=== PATIENT | female | born 1980 | race Caucasian/White ===

== ENCOUNTER 2017-03-17 14:21 | Emergency (ER) | payer OTHER ==
[~2017-03-17] VITALS: Ht 162.6 cm; Wt 105.4 kg
[~2017-03-17 14:21] MED LIST: ABILIFY10 MG PO; ABILIFY15 MG PO; ADDERALL XR 1010 MG PO; ADDERALL XR 2020 MG PO; ADDERALL XR 3030 MG PO; BIRTH CONTROL PILL; Buspar PO; CELEXA20 MG PO; CLEOCIN300 MG PO; CLONAZEPAM1 MG PO; CYMBALTA20 MG PO; DEPAKOTE250 MG PO; DEPAKOTE500 MG PO; Depakote PO; Desyrel PO; GEODON60 MG PO; IMITREX25 MG PO; KLONOPIN1 MG PO; KLONOPIN2 MG PO; LAMICTAL ODT50 MG PO; LAMICTAL25 MG PO; LAMOTRIGINE100 MG PO; MINIPRESS1 MG PO; MIRTAZAPINE30 MG PO; MOBIC7.5 MG PO; MOTRIN800 MG PO; NAPROSYN500 MG PO; PERCOCET 5/31 TABLET PO; PREDNISONE20 MG PO; PROAIR HFA8.5 GM IH; PROMETHAZINE HC25 M1 PO; RISPERDAL0.5 MG PO; RISPERDAL1 MG PO; TESSALON PERLE100 MG PO; TOPAMAX25 MG PO; TORADOL10 MG PO; TRAMADOL HCL50 MG PO; TRAZODONE HCL50 MG PO; ULTRAM50 MG PO; VIBRAMYCIN100 MG PO; XANAX0.5 MG PO; ZIPRASIDONE HCL60 MG PO; ZITHROMAX250 MG PO; [UNRECOGNIZED DRUG - OTHER] PO; [UNRECOGNIZED DRUG - REMARK]; [UNRECOGNIZED DRUG - REMARK]; [UNRECOGNIZED DRUG - REMARK]; [UNRECOGNIZED DRUG - REMARK]; celeXA PO; depakote PO
[2017-03-17] MEDS ORDERED: PERCOCET 5/31 TABLET PO (17:43)
[2017-03-17 18:11] VITALS: BP 123/93
== END 2017-03-17 18:11 | disposition home or self-care (01) ==
LOC: EME 14:21
DX: L85.0 Acquired ichthyosis (principal); M77.32 Calcaneal spur, left foot; F41.9 Anxiety disorder, unspecified; F31.9 Bipolar disorder, unspecified; F43.10 Post-traumatic stress disorder, unspecified; M17.0 Bilateral primary osteoarthritis of knee; F17.200 Nicotine dependence, unspecified, uncomplicated; Z88.0 Allergy status to penicillin
CPT/HCPCS: 73630; 99281; 99284

== ENCOUNTER 2017-05-13 13:16 | Emergency (ER) | payer OTHER ==
[~2017-05-13] VITALS: Ht 162.6 cm; Wt 112.1 kg
[2017-05-13 13:30] VITALS: BP 130/94
[2017-05-13] MEDS ORDERED: MOBIC15 MG PO (15:39)
[2017-05-13] MEDS ORDERED: ULTRAM50 MG PO (15:39)
== END 2017-05-13 16:01 | disposition home or self-care (01) ==
LOC: EME 13:16
DX: M72.2 Plantar fascial fibromatosis (principal)
CPT/HCPCS: 99281; 99284